=== PATIENT | male | born 1985 | race Caucasian/White ===

== ENCOUNTER 2016-09-19 12:56 | Emergency (ER) | payer MEDICARE, MEDICAID ==
[~2016-09-19] VITALS: Ht 180.3 cm; Wt 105.0 kg
[~2016-09-19 12:56] MED LIST: BUPROPION150 M3 PO; INVEGA3 MG PO; LAMICTAL100 M1 OR; LAMICTAL200 MG PO; LAMOTRIGINE ER300 MG PO; RISPERDAL1 M1 OR; RISPERDAL1 MG OR; RISPERIDONE2 MG PO; VYVANSE70 MG OR; VYVANSE70 MG PO; WELLBUTRIN150 M1 OR
[2016-09-19] MEDS ORDERED: VYVANSE70 MG PO (14:48)
[2016-09-19 14:50] VITALS: BP 129/73
== END 2016-09-19 14:54 | disposition home or self-care (01) ==
LOC: ED 12:56
DX: Z76.0 Encounter for issue of repeat prescription (principal); R42 Dizziness and giddiness; R53.1 Weakness; F17.210 Nicotine dependence, cigarettes, uncomplicated